=== PATIENT | female | born 1985 | race Caucasian/White ===

== ENCOUNTER 2025-07-10 01:40 | Emergency (ER) | payer OTHER ==
[2025-07-10] MEDS ORDERED: Ketorolac Tromethamine 30 MG (1 mL) VIAL ONE (02:07)
[2025-07-10] MEDS ORDERED: Prochlorperazine 10 MG/2 ML VIAL ONE (02:08)
== END 2025-07-10 05:05 | disposition home or self-care (01) ==
LOC: NAV ERS 01:40
DX: G43.919 Migraine, unspecified, intractable, without status migrainosus (principal); E11.9 Type 2 diabetes mellitus without complications; I10 Essential (primary) hypertension; E78.5 Hyperlipidemia, unspecified; E66.9 Obesity, unspecified; Z87.891 Personal history of nicotine dependence; Z79.84 Long term (current) use of oral hypoglycemic drugs; Z79.4 Long term (current) use of insulin; Z79.899 Other long term (current) drug therapy
CPT/HCPCS: 96365; 96375; J0780; J1885; J7030